=== PATIENT | female | born 1975 | race African-American/Black ===

== ENCOUNTER 2023-08-15 09:35 | Emergency (ER) | payer MEDICARE, MEDICAID ==
[~2023-08-15] VITALS: Ht 170.2 cm; Wt 71.8 kg
[2023-08-15 10:49] LABS: Urine Bacteria NONE SEEN /hpf (None Seen); Urine Blood Negative /uL (Negative); Urine Clarity Clear (Clear); Urine Color Straw (Yellow); Urine Protein, UAD Negative (Negative); Urine Specific Gravity 1.005 (1.001-1.035); Urine Urobilinogen Normal (Negative); Urine WBC <1 /hpf (0 - 5)
[2023-08-15 11:00] VITALS: BP 122/89; PULSE 76; RESP 18; O2SAT 100
[2023-08-15 11:15] LABS: Vaginal Bacteria Few; Vaginal Clue Cells Few; Vaginal Epithelial Cells Many; Vaginal Trichomonas Not Present
[2023-08-15] MEDS ORDERED: METR-344 PO (11:26)
[2023-08-15] MEDS ORDERED: FLUC150T38 PO (11:26)
[2023-08-17 00:07] LABS: Chlamydia Trachomatis, NAA Negative (Negative); Neisseria gonorrhoeae, NAA Negative (Negative)
== END 2023-08-15 11:32 | disposition home or self-care (01) ==
LOC: ER 09:35
DX: N76.0 Acute vaginitis (principal); B37.31 Acute candidiasis of vulva and vagina; Z20.2 Contact with and (suspected) exposure to infections with a predominantly sexual mode of transmission
CPT/HCPCS: 81001; 87210

== ENCOUNTER 2023-09-10 10:54 | Emergency (ER) | payer MEDICAID, MEDICARE ==
[~2023-09-10] VITALS: Ht 170.2 cm; Wt 71.9 kg
[~2023-09-10 10:54] MED LIST: FLUC150T38 PO; METR-344 PO
[2023-09-10 12:05] LABS: Urine Bacteria NONE SEEN /hpf (None Seen); Urine Blood Negative /uL (Negative); Urine Clarity Clear (Clear); Urine Color Yellow (Yellow); Urine Mucus FEW (None Seen); Urine Protein, UAD TRACE (Negative); Urine Specific Gravity 1.028 (1.001-1.035); Urine WBC <1 /hpf (0 - 5); Urine pH 7.5 (5.0-8.0)
[2023-09-10 15:45] VITALS: BP 151/88; PULSE 76; RESP 18; TEMP 98.3; O2SAT 100
[2023-09-10 16:35] LABS: Vaginal Bacteria Few; Vaginal Epithelial Cells Moderate; Vaginal Trichomonas Not Present
[2023-09-10 16:36] LABS: Vaginal Clue Cells Few
[2023-09-10] MEDS ORDERED: METR-344 PO (17:10)
[2023-09-12 07:08] LABS: RPR Non Reactive (Non Reactive)
[2023-09-12 22:06] LABS: Chlamydia Trachomatis, NAA Negative (Negative); Neisseria gonorrhoeae, NAA Negative (Negative)
== END 2023-09-10 17:23 | disposition home or self-care (01) ==
LOC: ER 10:54
DX: N76.0 Acute vaginitis (principal); B96.89 Other specified bacterial agents as the cause of diseases classified elsewhere; Z79.899 Other long term (current) drug therapy
CPT/HCPCS: 81001; 81025; 86592; 86703; 87210